=== PATIENT | male | born 1980 | race Caucasian/White ===

== ENCOUNTER 2016-11-10 18:38 | Emergency (ER) | payer SELFPAY ==
[~2016-11-10] VITALS: Ht 188 cm; Wt 119.8 kg
[2016-11-10 19:21] LABS: HEMATOCRIT 46.2 % (38.0-50.0); MCH 30.2 PG (29.0-34.0); MCHC 34.6 G/DL (30.0-36.0); MCV 87.3 FL (86-99); MEAN PLAT.VOLUME 10.1 uM^3 (9.0-12.4); PLATELET COUNT 282 K/uL (156-360); RBC DIS.WIDTH-SD 41.4 % (39-53); RED BLOOD COUNT 5.29 M/uL (4.00-5.50); WHITE BLOOD COUNT 8.3 K/uL (4.1-10.2)
[2016-11-10 19:29] LABS: CHLORIDE 106 mEq/L (99-109); SODIUM 138 mEq/L (136-147)
[2016-11-10 19:31] LABS: GLUCOSE 110 mg/dL (70-99)
[2016-11-10 19:32] LABS: ANION GAP 12 MEQ/L (2-14)
[2016-11-10 19:33] LABS: TOTAL BILIRUBIN 0.2 mg/dL (0.0-1.0)
[2016-11-10 19:34] LABS: ALKALINE PHOSPHATASE 97 IU/L (3-129)
[2016-11-10 19:35] LABS: GFR ESTIMATE (CALCULATED) > 59 mL/min/
[2016-11-10 19:36] LABS: UREA NITROGEN (BUN) 12 mg/dL (9-23)
[2016-11-10 19:38] LABS: LIPASE 28 U/L (1.0-51.0)
[2016-11-10 20:16] LABS: ADD MIUA? NO; BILIRUBIN NEGATIVE; BLOOD NEGATIVE; COLOR YELLOW ((YELLOW)); GLUCOSE (STRIP) NEGATIVE; KETONES 5; LEUKOCYTES NEGATIVE; NITRITE NEGATIVE; PROTEIN (STRIP) NEGATIVE; SPECIFIC GRAVITY 1.017 (1.000-1.030); UCUL ADDED? NO; UROBILINOGEN 0.2 MG/DL (0.2-1.0)
[2016-11-10 20:32] LABS: AMYLASE 28 IU/L (1-118)
[2016-11-10] MEDS ORDERED: NORCO 5/3251 TABLET PO (22:37)
[2016-11-10 22:49] VITALS: BP 134/78
== END 2016-11-10 22:49 | disposition home or self-care (01) ==
LOC: EME 18:38
DX: R10.31 Right lower quadrant pain (principal); Z87.891 Personal history of nicotine dependence
CPT/HCPCS: 76705; 80053; 81003; 82150; 83690; 85027; 99281; 99284